=== PATIENT | female | born 1940 | race Caucasian/White ===

== ENCOUNTER 2019-06-11 07:46 | Outpatient (CLI) | payer MEDICARE | END 2019-06-11 23:59 | disposition home or self-care (01) | LOC: RAD 07:46 | PROVIDERS: ATTEND Urology | DX: N20.0 Calculus of kidney (principal); I87.8 Other specified disorders of veins; I48.91 Unspecified atrial fibrillation | CPT/HCPCS: 74018; 93005 ==

== ENCOUNTER 2019-06-12 08:26 | Day surgery (SDC) | payer MEDICARE ==
[~2019-06-12] VITALS: Ht 180.3 cm; Wt 96.3 kg
[2019-06-12 09:24] VITALS: BP 125/85
== END 2019-06-12 16:30 | disposition home or self-care (01) ==
LOC: OUT 08:26
PROVIDERS: ATTEND Urology
DX: N20.1 Calculus of ureter (principal); I10 Essential (primary) hypertension; I48.91 Unspecified atrial fibrillation; G47.33 Obstructive sleep apnea (adult) (pediatric); Z72.89 Other problems related to lifestyle; Z79.01 Long term (current) use of anticoagulants; Z79.899 Other long term (current) drug therapy; Z82.49 Family history of ischemic heart disease and other diseases of the circulatory system; Z96.612 Presence of left artificial shoulder joint; Z85.828 Personal history of other malignant neoplasm of skin
CPT/HCPCS: 36415; 50590; 74176; 85610; 85730; J0330; J0690; J2250; J2704; J3010; J7120; Q0162